=== PATIENT | male | born 1965 | race Caucasian/White ===

== ENCOUNTER 2019-07-29 09:08 | Day surgery (SDC) | payer OTHER ==
[2019-07-29 09:42] VITALS: BMI 36.4
[2019-07-29 11:33] VITALS: TEMP 97.9
[2019-07-29 15:14] VITALS: BP 117/78; PULSE 72
== END 2019-07-29 12:30 | disposition home or self-care (01) ==
LOC: JASU-ENDO 09:08
PROVIDERS: ATTEND Internal Medicine Gastroenterology
PROC: 0DJD8ZZ Inspection of Lower Intestinal Tract, Via Natural or Artificial Opening Endoscopic (ICD-10-PCS; principal; 2019-07-29 10:00)
DX: Z51.11 Encounter for antineoplastic chemotherapy (principal); K64.8 Other hemorrhoids

== ENCOUNTER 2020-08-18 14:36 | Observation (INO) | payer OTHER ==
[2020-08-18 14:50] VITALS: BMI 36.1
[2020-08-18 16:13] LABS: BASO % 0.8 % (0-2.0); EOS % 3.6 % (0-4.5); HEMATOCRIT 50.7 % (35.4-49); HEMOGLOBIN 16.9 GM/dL (11.7-16.9); LYMPH % 32.8 % (8-40); MCH 32.8 pg (25.7-33.7); MCHC 33.3 g/dl (32.0-35.9); MEAN CELL VOLUME 98.5 fl (80-96); MEAN PLT VOLUME 8.8 fl (7.5-11.1); MONO % 5.5 % (3.8-10.2); NEUT % 57.3 % (42.8-82.8); PLATELET COUNT 255 K/MM3 (134-434); RBC 5.15 M/mm3 (4.00-5.60); RDW 13.1 % (11.9-15.9)
[2020-08-18 16:34] LABS: CHLORIDE 103 mmol/L (98-107); POTASSIUM 4.3 mmol/L (3.5-5.1); SODIUM 139 mmol/L (136-145)
[2020-08-18 16:38] LABS: ALBUMIN 4.3 g/dl (3.4-5.0); ANION GAP 7 MMOL/L (8-16); BLOOD UREA NITROGEN 12.3 mg/dL (7-18); CALCIUM 9.8 mg/dL (8.5-10.1); CO2 28 mmol/L (21-32)
[2020-08-18 16:39] LABS: GLUCOSE,RANDOM 91 mg/dL (74-106); LIPASE 108 U/L (73-393)
[2020-08-18 16:41] LABS: SGOT/AST 35 U/L (15-37); SGPT/ALT 56 U/L (13-61)
[2020-08-18 16:42] LABS: CREATININE 1.3 mg/dL (0.55-1.3)
[2020-08-18 16:43] LABS: BILIRUBIN,TOTAL 0.8 mg/dL (0.2-1); TOT PROT 7.9 g/dl (6.4-8.2)
[2020-08-18 16:44] LABS: ALK PHOS 51 U/L (45-117)
[2020-08-18] MEDS ORDERED: ASPIRIN 81 MG CHEWABLE TABLETS PO ONE (16:54)
[2020-08-18] MEDS ORDERED: ASPIRIN 81 MG CHEWABLE TABLETS ONE (17:12)
[2020-08-18] MEDS ORDERED: ROSUVASTATIN CA 5 MG TABLET (FP) PO SCH (22:00)
[2020-08-19] MEDS ORDERED: SODIUM CHLORIDE 250 ML IV STA (05:13)
[2020-08-19] MEDS ORDERED: SODIUM CHLORIDE 1,000 ML IV SCH (05:15)
[2020-08-19 07:55] LABS: CHLORIDE 106 mmol/L (98-107); POTASSIUM 4.3 mmol/L (3.5-5.1); SODIUM 142 mmol/L (136-145)
[2020-08-19 08:04] LABS: BLOOD UREA NITROGEN 13.4 mg/dL (7-18); CALCIUM 8.8 mg/dL (8.5-10.1)
[2020-08-19 08:05] LABS: ALBUMIN 3.6 g/dl (3.4-5.0); ANION GAP 9 MMOL/L (8-16); BASO % 0.5 % (0-2.0); CO2 27 mmol/L (21-32); EOS % 3.7 % (0-4.5); GLUCOSE,RANDOM 92 mg/dL (74-106); HEMATOCRIT 48.8 % (35.4-49); HEMOGLOBIN 16.2 GM/dL (11.7-16.9); LYMPH % 30.9 % (8-40); MCHC 33.3 g/dl (32.0-35.9); MEAN CELL VOLUME 99.1 fl (80-96); MEAN PLT VOLUME 9.1 fl (7.5-11.1); MONO % 7.7 % (3.8-10.2); NEUT % 57.2 % (42.8-82.8); PLATELET COUNT 240 K/MM3 (134-434); RBC 4.92 M/mm3 (4.00-5.60)
[2020-08-19 08:07] LABS: CHOLESTEROL 194 mg/dL (50-200)
[2020-08-19 08:08] LABS: CREATININE 1.3 mg/dL (0.55-1.3); SGOT/AST 32 U/L (15-37); SGPT/ALT 51 U/L (13-61)
[2020-08-19 08:09] LABS: LDL CHOLESTEROL (ONLY SJRH) 119 mg/dL (5-100); TOT PROT 6.9 g/dl (6.4-8.2); TRIGLYCERIDES 347 mg/dL (0-150)
[2020-08-19 08:10] LABS: ALK PHOS 46 U/L (45-117); HDL CHOLESTEROL 38 mg/dL (40-60)
[2020-08-19 08:11] LABS: BILIRUBIN,TOTAL 1.8 mg/dL (0.2-1)
[2020-08-19] MEDS ORDERED: ASPIRIN 81 MG CHEWABLE TABLETS PO SCH (10:00)
[2020-08-19 13:30] VITALS: BP 115/78; PULSE 72; TEMP 98
== END 2020-08-19 15:30 | disposition home or self-care (01) ==
LOC: JER 14:36 → JERBED 18:25 → J4W 23:14
PROVIDERS: ADMIT Internal Medicine; ATTEND Family Medicine
PROC: 3E0337Z Introduction of Electrolytic and Water Balance Substance into Peripheral Vein, Percutaneous Approach (ICD-10-PCS; principal; 2020-08-18)
DX: R07.89 Other chest pain (principal); R73.03 Prediabetes; R94.31 Abnormal electrocardiogram [ECG] [EKG]; E78.5 Hyperlipidemia, unspecified; R79.89 Other specified abnormal findings of blood chemistry; E66.9 Obesity, unspecified; Z68.36 Body mass index [BMI] 36.0-36.9, adult; Z20.828 Contact with and (suspected) exposure to other viral communicable diseases
CPT/HCPCS: 36415; 71045-TC-FY; 80053; 80061; 82272; 82550; 82553; 83690; 83721; 83735; 84443; 84484; 85025; 93005; 93010; 99285-25; C9803; G0378; U0003

== ENCOUNTER 2025-01-28 06:21 | Day surgery (SDC) | payer OTHER ==
[2025-01-26 13:27] VITALS: BMI 34.9
[2025-01-28 08:34] VITALS: RESP 16
[2025-01-28] MEDS: LIDOCAINE HCL 1% PRESERVATIVE FREE - 30ML VIAL IJ ONE ×2 (09:02)
[2025-01-28] MEDS: IOHEXOL 180 MG/1 ML ML IJ ONE ×2 (09:04)
[2025-01-28] MEDS: DEXAMETHASONE SOD PHOSPHATE 10 MG/1 ML VIAL IM ONE ×2 (09:07)
[2025-01-28 10:07] VITALS: BP 123/70; PULSE 70; TEMP 97.8
== END 2025-01-28 09:30 | disposition home or self-care (01) ==
LOC: JASU-SURG 06:21
PROVIDERS: ATTEND Pain Medicine Pain Medicine
PROC: 3E0R3BZ Introduction of Anesthetic Agent into Spinal Canal, Percutaneous Approach (ICD-10-PCS; 2025-01-28)
PROC: 3E0R33Z Introduction of Anti-inflammatory into Spinal Canal, Percutaneous Approach (ICD-10-PCS; principal; 2025-01-28 09:30)
DX: M54.16 Radiculopathy, lumbar region (principal)
CPT/HCPCS: 76000-TC-FY; J1100